=== PATIENT | male | born 1980 | race Caucasian/White ===

== ENCOUNTER 2018-03-10 22:22 | Emergency (ER) | payer OTHER ==
--- NOTE | 2018-03-10 22:50 | ED ---
Allergic Reaction/Systemic - HPI Summary HPI Summary: Pt is 38 y/o M BIBA to [facility] due to allergic reaction. He was stung by a bee on his right wrist while working in his yard, and ran into his house to administer his epipen before EMS arrived. EMS administered Benadryl and steroid per nurse s report. Pt has had severe allergic reactions to bee stings before, in which he broke out in hives and his throat was swollen. He denies having any of those symptoms today. Rates his pain intensity as 0/10 in severity at triage. - History of Current Complaint Chief Complaint: EDAllergicReaction Time Seen by Provider: 03/10/18 22:39 Hx Obtained From: Patient, EMS Onset/Duration: Sudden Onset, Started minutes ago Severity Currently: None Pain Intensity: 0 Pain Scale Used: 0-10 Numeric Character: Pain - NEGATIVE, Hives - NEGATIVE Associated Signs And Symptoms: Negative: Rash, Throat Tightening - Allergies/Home Medications Allergies/Adverse Reactions: Allergies Allergy/AdvReac Type Severity Reaction Status Date / Time bee venom protein (honey bee) Allergy Anaphylatic Verified 03/10/18 22:36 Shock Home Medications: Home Medications Epipen 03/10/18 [History] Hydrochlorothiazide TAB* 03/10/18 [History] Valsartan TAB* 03/10/18 [History] amLODIPine TAB* 03/10/18 [History] PMH/Surg Hx/FS Hx/Imm Hx Cardiovascular History: Reports: Other Cardiovascular Problems/Disorders - Esophageal Reflux Respiratory History: Reports: Hx Sleep Apnea Infectious Disease History: No Infectious Disease History: Denies: Traveled Outside the [place] in Last 30 Days - Family History Known Family History: Positive: Hypertension - Social History Alcohol Use: Occasionally Substance Use Type: Reports: None Smoking Status (MU): Light Every Day Tobacco Smoker Review of Systems Positive: Other - NEGATIVE: swollen throat Negative: Rash All Other Systems Reviewed And Are Negative: Yes Physical Exam - Summary Physical Exam Summary: Appearance: Well-appearing, Well-nourished, lying in bed comfortably Skin: Right volar wrist there is a bee sting with localized erythema. No urticarial hives. Warm, dry. Eyes: sclera anicteric, no conjunctival pallor ENT: mucous membranes moist, pharynx appears normal Neck: Supple, nontender Respiratory: Clear to auscultation, no signs of respiratory distress Cardiovascular: Normal S1, S2. No murmurs. Normal distal pulses in tibial and radial bilaterally. Abdomen: Soft, nontender, normal active bowel sounds present Musculoskeletal: Normal, Strength/ROM Intact Neurological: A&Ox3, awake and alert, mentation is normal, speech is fluent and appropriate Psychiatric: affect is normal, does not appear anxious or depressed Triage Information Reviewed: Yes Vital Signs On Initial Exam: Initial Vitals Temp Pulse Resp BP Pulse Ox 99.8 F 87 16 132/94 94 03/10/18 22:25 03/10/18 22:25 03/10/18 22:25 03/10/18 22:25 03/10/18 22:25 Vital Signs Reviewed: Yes Diagnostics - Vital Signs Vital Signs Temp Pulse Resp BP Pulse Ox 03/10/18 22:32 89 23 132/75 93 03/10/18 22:25 99.8 F 87 16 132/94 94 - Laboratory Lab Statement: Any lab studies that have been ordered have been reviewed, and results considered in the medical decision making process. Allergic Reaction Course/Dx - Course Course Of Treatment: Pt is 38 y/o BIBA to [facility] s/p bee sting on his right wrist. He administered his epipen before EMS arrived, and EMS administered Benadryl and steroid prior to arrival to ED. Pt has had severe allergic reactions to bee stings before, in which he broke out in hives and his throat was swollen, but he denies having any of those symptoms today. Rates his pain intensity as 0/10 in severity at triage. Physical exam revealed bee sting with localized erythema on right volar wrist and no urticarial hives. Pt was discharged home with a prescription of Decadron. Pt is agreeable with this plan. - Diagnoses Provider Diagnoses: Insect sting, Anaphylactic reaction Discharge - Sign-Out/Discharge Documenting (check all that apply): Patient Departure - Discharge - Discharge Plan Condition: Good Disposition: HOME Prescriptions: Dexamethasone TAB* [Decadron TAB*] 8 mg PO DAILY #8 tab Patient Education Materials: Insect Bite or Sting (ED), Anaphylaxis (ED) Referrals: Care [facility] [Outside] - Attestation Statements Document Initiated by Scribe: Yes Documenting Scribe: Conor Fagan Provider For Whom Scribe is Documenting (Include Credential): Dr. John Newman MD Scribe Attestation: I, Prashasti Gracia, scribed for Dr. John Newman MD on 03/11/18 at 0043.
[2018-03-11 00:07] VITALS: BP 117/74
== END 2018-03-11 00:05 | disposition home or self-care (01) ==
LOC: ED 22:22
DX: T63.441A Toxic effect of venom of bees, accidental (unintentional), initial encounter (principal); Y92.096 Garden or yard of other non-institutional residence as the place of occurrence of the external cause; F17.200 Nicotine dependence, unspecified, uncomplicated
CPT/HCPCS: 99283